=== PATIENT | male | born 1970 | race African-American/Black ===

== ENCOUNTER 2016-08-17 12:50 | Outpatient (CLI) | payer OTHER ==
[2016-08-17 13:40] LABS: POTASSIUM 4.1 mmol/L (3.6-5.2)
== END 2016-08-17 13:50 | disposition home or self-care (01) ==
LOC: LABW 12:50
PROVIDERS: Family Medicine
DX: E11.9 Type 2 diabetes mellitus without complications (principal); I10 Essential (primary) hypertension; R60.0 Localized edema; Z87.19 Personal history of other diseases of the digestive system; R53.1 Weakness
CPT/HCPCS: 36415; 80053